=== PATIENT | male | born 1940 ===

== ENCOUNTER 2016-09-26 16:07 | Emergency (ER) | payer MEDICARE, OTHER | END 2016-09-26 16:54 | disposition home or self-care (01) | LOC: ER 16:07 | DX: M79.1 Myalgia (principal); I10 Essential (primary) hypertension; Z95.1 Presence of aortocoronary bypass graft | CPT/HCPCS: 93971; 99283; A9270-GY ==

== ENCOUNTER 2016-10-14 10:18 | Inpatient (IN) | payer MEDICARE, OTHER ==
--- NOTE | ~2016-10-14 | OP ---
Record Of Operation [facility] [address] [place]. [address] NAME: TINA MARS : 40 STATUS : ADM IN [facility]#: [id number] AGE: 76 ADM/REG DATE : 10/14/16 MR#: [id number] REPORT SERV DATE: 10/15/16 DICTATED BY: JAQUELIN OCASIO DATE: 10/15/16 REPORT STATUS : Draft TRANSCRIBED BY: MODL DATE: 10/15/16 DATE OF PROCEDURE: 10/14/2016 PREOPERATIVE DIAGNOSIS: Right femoral neck fracture per MRI. POSTOPERATIVE DIAGNOSIS: Right femoral neck fracture per MRI. PROCEDURE: Right femoral neck ORIF with 7.3 screws. SURGEON: Sheyla Ocasio M.D. THREADING MACHINE SETTER: See chart. DESCRIPTION OF PROCEDURE: The patient was taken to the operating room and placed supine on the table in normal fashion without incident. Placed on the fracture table under fluoroscopic guidance. He was first sedated and then injected with lidocaine and Marcaine solution into the trochanteric region and under fluoroscopic guidance, then a guidewire was placed percutaneously into the center aspect of the femoral head, checked on AP and lateral views with an entry point proximal to the lesser trochanter. Small incision was made followed by parallel pin guide, used to place two other pins into the femoral head. This was checked in AP and lateral views, measured with a depth gauge. The near cortex was drilled. Three screws were placed, tightened, and checked on AP and lateral views. Guidewire was removed. Wound was irrigated, closed, and dressed sterilely. The patient was awakened and taken to the postanesthesia care unit without incident. COMPLICATIONS: None. SPECIMENS: None. BLOOD LOSS: About 5 mL. WTB/MODL Sheyla Ocasio M.D. / [id number] CC: Kishore Gomez M.D.
--- NOTE | ~2016-10-14 | CN ---
Consultation Report [place] [id number] [facility] [place]. [address] NAME: TINA MARS : 40 STATUS : ADM IN PAT#: [id number] AGE: 76 ADM/REG DATE : 10/14/16 MR#: [id number] REPORT SERV DATE: 10/15/16 DICTATED BY: LUCHOJENNIFER SULAIMAN DATE: 10/15/16 REPORT STATUS : Draft TRANSCRIBED BY: MODL DATE: 10/15/16 CONSULTATION. DATE OF CONSULTATION: 10/14/2016 REASON FOR CONSULTATION: Consulted for atrial fibrillation new onset. REQUESTING PHYSICIAN: Dr. Jose Guadalupe Boogie. IDENTIFYING DATA: PRIMARY CARE PHYSICIAN: Dr. Jimmy Gibson. SENIOR DATA SCIENTIST: Dr. Diego Sutherland. HISTORY OF PRESENT ILLNESS: This is a pleasant 76-year-old with a history of COPD, on home O2; high cholesterol, hypertension, coronary artery disease status post CABG approximately 20 years ago, and GERD. He presents to Dr. Jose Guadalupe Boogie with complaints of right hip and upper thigh pain. He is status post surgery on 10/14/2016 for a right hip. The hospitalist group has been consulted to manage the new onset of atrial fibrillation. The patient's history was obtained through interview with the patient coupled with review of wellness consultant's notes and medical records from [facility] and [facility]. PAST MEDICAL HISTORY: 1. COPD. 2. High cholesterol. 3. Kidney disease. 4. Hypertension. 5. GERD. 6. Coronary artery disease. 7. Chronic O2 at 2 L at night. 8. Aortic aneurysm. HOME MEDICATIONS: 1. Norvasc 5 mg p.o. daily. 2. Aspirin 81 mg p.o. every morning. 3. Coreg 9.375 mg p.o. twice a day. 4. Pepcid 20 mg p.o. twice a day. 5. Hydrocodone 5/325 one tablet every 4 to 6 hours p.r.n. for pain. 6. Prilosec 20 mg p.o. every Wednesday, , and Wednesday and the other days where the patient utilizes Pepcid b.i.d. 7. Zocor 20 mg p.o. at bedtime. Consultation Report [address] [place]. [address] NAME: VERNA MARSCassandra Urena : 40 STATUS : ADM IN PAT#: [id number] AGE: 76 ADM/REG DATE : 10/14/16 MR#: [id number] REPORT SERV DATE: 10/15/16 DICTATED BY: JENNIFER YEPEZ DATE: 10/15/16 REPORT STATUS : Draft TRANSCRIBED BY: SANDRA DATE: 10/15/16 ALLERGIES: NO KNOWN ALLERGIES. SOCIAL HISTORY: The patient is retired. 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 Former smoker that quit 30 years ago. No alcohol or illicit drug use. He does have a split foyer with stairs. He uses a cane to ambulate at home prior to his surgery. FAMILY HISTORY: Mother had arthritis. Brother had a CABG. Father from cancer. The patient had three brothers and three sisters. SURGICAL HISTORY: 1. Cholecystectomy. 2. Appendectomy. 3. Colon surgery at 7 years old. 4. CABG approximately 20 years ago. The patient thinks that he had it at [facility]. REVIEW OF SYSTEMS: Are negative other than what is in HPI. The patient is alert and oriented. No complaints of shortness of breath. No nausea or vomiting. No abdominal pain. Displays no confusion or agitation. No chest pain or any discomfort. No fever. PHYSICAL EXAMINATION: VITAL SIGNS: From today, blood pressure 127/60, respiratory rate 18, heart rate 81, temperature 97.7, O2 saturation 93% on 2 L nasal cannula. GENERAL: This is a 76-year-old male, resting in bed. No acute distress. He is alert and oriented x3. NEURO: His head is atraumatic. He is normocephalic. Cranial nerves II through XII are intact. His mood is pleasant and appropriate. NECK: Supple. Trachea is midline. No JVD noted. No obvious thyromegaly or lymphadenopathy. EENT: Sclerae are nonicteric. Pupils are equal and reactive to light. Nares are patent. Mucous membranes moist. Tongue midline without deviation. Soft palate rises equally on phonation. CHEST: No pain with palpation. The patient states he is asymptomatic. He did know his heart rate was irregular. LUNGS: Clear to auscultation bilaterally. Normal respiratory effort. No increased work of breathing with conversation. CARDIOVASCULAR: S1, S2. He does have irregular rate. He is on telemetry, displays an atrial fib with a controlled rate in the 80s. ABDOMEN: Soft, nontender. Active bowel sounds. No palpable organomegaly. EXTREMITIES: He is positive for edema in the ankles. Normal distal pulses. No calf tenderness. Has bilateral TEDs in place for DVT prophylaxis. SKIN: Warm and dry. No unusual rashes or lesions. Normal color and turgor. Consultation Report [address] [place]. [address] NAME: TINA MARS : 40 STATUS : ADM IN [facility]#: [id number] AGE: 76 ADM/REG DATE : 10/14/16 MR#: [id number] REPORT SERV DATE: 10/15/16 DICTATED BY: JENNIFER YEPEZ DATE: 10/15/16 REPORT STATUS : Draft TRANSCRIBED BY: SANDRA DATE: 10/15/16 PSYCH: He is pleasant, cooperative, appropriate mood and affect. SURGICAL WOUND SITE: His dressing is clean, dry, and intact to the right hip op site area. LABORATORY DATA: Sodium 140, potassium 4.7, chloride 108, BUN 35, creatinine 1.71, GFR 44, glucose 108, calcium 8.8. White blood cell 9.9, hemoglobin 9.9, hematocrit 29.2, platelets 265. INR 1.2. Troponin less than 0.02. An EKG on 10/14/2016 displayed atrial fibrillation, nonspecific T-wave abnormality with a rate at 93. ASSESSMENT AND PLAN: 1. Atrial fibrillation new onset. The patient states that he is not aware that he has had an irregular heart rhythm in the past. Controlled rate in the 80s presently on telemetry. He does have a history of CABG in the past as well as hypertension and aortic aneurysm. He is on telemetry. We will get a repeat EKG in the morning, troponins are q.8 x3. We will schedule for an echo in the morning due to new onset of atrial fibrillation with CHI to read. We will continue his Coreg, his Norvasc, and Ortho has the patient now on Coumadin daily. We will check an INR in the morning. 2. Chronic obstructive pulmonary disease. Aware. He is on home O2 at night. We will continue his O2 at 2 L at bedtime. We will have continuous O2 saturation monitoring. We will obtain a portable chest x-ray this morning. 3. Gastroesophageal reflux disease. Aware. We will continue patient's Prilosec and Pepcid for which he takes on alternate days. 4. Hypercholesterolemia. Aware. The patient's Zocor will be continued. 5. A.m. labs. CMP, magnesium, phosphorus, CBC, TSH, EKG, troponin, echo, and portable chest x-ray. If the patient does need a Cardiology consult, he does see Dr. Diego Sutherland in the past. He states since he had that CABG approximately 20 years ago but normally his PCP takes care of his health care. The hospitalist group would like to thank you for this consultation. Please let us know if we could be of further assistance. SHANELL Jennifer Yepez NP / [phone] CC: Sheyla Boogie M.D.
[2016-10-14 11:23] LABS: BASOPHILS 0.6 %; BASOPHILS ABSOLUTE 0.06 10/3/uL (0.0-0.16); EOSINOPHILS 3.3 %; EOSINOPHILS ABSOLUTE 0.33 10/3/uL (0.0-0.53); HEMATOCRIT 32.6 % (40.0-51.0); HEMOGLOBIN 11.1 g/dL (13.6-17.8); IMMATURE GRANULOCYTES 0.3 %; IMMATURE GRANULOCYTES ABSOLUTE 0.03 10/3/uL (0.0-0.11); LYMPHOCYTES 24.4 %; LYMPHOCYTES ABSOLUTE 2.42 10/3/uL (0.67-4.30); MANUAL DIFF NO %; MEAN CORPUSCULAR HEMOGLOB 29.4 pg (26.0-34.0); MEAN CORPUSCULAR VOLUME 86.2 fL (80-100); MEAN PLATELET VOLUME 10.8 fL (9.2-13.0); MONOCYTES 8.1 %; NEUTROPHILS 63.3 %; NEUTROPHILS ABSOLUTE 6.29 10/3/uL (2.02-8.40); PLATELET COUNT 265 10/3/uL (150-400); RBC DISTRIBUTION WIDTH 14.8 % (12.0-16.0); RED CELL COUNT 3.78 10/6/uL (4.7-6.1); WHITE BLOOD CELLS 9.9 10/3/uL (4.5-10.5)
[2016-10-14] MEDS ORDERED: COREG6 PO (11:28)
[2016-10-14] MEDS ORDERED: PCET PO (11:29)
[2016-10-14] MEDS ORDERED: ZOCOR20 PO (11:30)
[2016-10-14] MEDS ORDERED: PRILO PO (11:33)
[2016-10-14] MEDS ORDERED: PEP20 PO (11:34)
[2016-10-14] MEDS ORDERED: ASAB PO (11:35)
[2016-10-14] MEDS ORDERED: NORCO1 TA1 PO (11:38)
[2016-10-14 11:43] LABS: BUN (BLOOD UREA NITROGEN) 35 MG/DL (6-23); CALCIUM, SERUM 9.3 MG/DL (8.5-10.4); CHLORIDE, SERUM 109 MMOL/L (96-112); CO2 (CARBON DIOXIDE) 21 MMOL/L (24-34); CREATININE 1.68 MG/DL (0.70-1.30); GFR AFRICAN AMERICAN 45 ML/MIN (>=60); GFR NON AFRICAN AMERICAN 39 ML/MIN (>=60); GLUCOSE, SERUM 96 MG/DL (60-99); POTASSIUM, SERUM 4.5 MMOL/L (3.5-5.3); SODIUM, SERUM 141 MMOL/L (135-148)
[2016-10-14 20:33] LABS: INTERNATIONAL NORMAL RATI 1.1 UNITS (-); PROTIME (NOT ORD) 14.2 SEC (12.0-14.5)
[2016-10-15 00:36] LABS: HEMATOCRIT 29.2 % (40.0-51.0); HEMOGLOBIN 9.9 g/dL (13.6-17.8)
[2016-10-15 00:42] LABS: INTERNATIONAL NORMAL RATI 1.2 UNITS (-); PROTIME (NOT ORD) 14.9 SEC (12.0-14.5)
[2016-10-15 00:55] LABS: BUN (BLOOD UREA NITROGEN) 35 MG/DL (6-23); CALCIUM, SERUM 8.8 MG/DL (8.5-10.4); CHLORIDE, SERUM 108 MMOL/L (96-112); CO2 (CARBON DIOXIDE) 25 MMOL/L (24-34); CREATININE 1.71 MG/DL (0.70-1.30); GFR AFRICAN AMERICAN 44 ML/MIN (>=60); GFR NON AFRICAN AMERICAN 38 ML/MIN (>=60); GLUCOSE, SERUM 108 MG/DL (60-99); POTASSIUM, SERUM 4.7 MMOL/L (3.5-5.3); SODIUM, SERUM 140 MMOL/L (135-148); TROPONIN I <0.02 NG/ML (<0.05)
[2016-10-15 09:47] LABS: BASOPHILS 0.3 %; BASOPHILS ABSOLUTE 0.03 10/3/uL (0.0-0.16); EOSINOPHILS ABSOLUTE 0.36 10/3/uL (0.0-0.53); HEMATOCRIT 31.4 % (40.0-51.0); HEMOGLOBIN 10.6 g/dL (13.6-17.8); IMMATURE GRANULOCYTES 0.2 %; IMMATURE GRANULOCYTES ABSOLUTE 0.02 10/3/uL (0.0-0.11); LYMPHOCYTES 18.2 %; LYMPHOCYTES ABSOLUTE 1.65 10/3/uL (0.67-4.30); MANUAL DIFF NO %; MEAN CORPUS HGB CONC 33.8 g/dL (32.0-36.0); MEAN CORPUSCULAR HEMOGLOB 29.2 pg (26.0-34.0); MEAN CORPUSCULAR VOLUME 86.5 fL (80-100); MEAN PLATELET VOLUME 10.8 fL (9.2-13.0); NEUTROPHILS 66.3 %; NEUTROPHILS ABSOLUTE 6.01 10/3/uL (2.02-8.40); PLATELET COUNT 249 10/3/uL (150-400); RBC DISTRIBUTION WIDTH 14.6 % (12.0-16.0); RED CELL COUNT 3.63 10/6/uL (4.7-6.1); WHITE BLOOD CELLS 9.1 10/3/uL (4.5-10.5)
[2016-10-15 10:13] LABS: A/G RATIO 0.7 (0.7-1.9); BUN (BLOOD UREA NITROGEN) 31 MG/DL (6-23); CALCIUM, SERUM 8.8 MG/DL (8.5-10.4); CHLORIDE, SERUM 105 MMOL/L (96-112); CO2 (CARBON DIOXIDE) 22 MMOL/L (24-34); CREATININE 1.71 MG/DL (0.70-1.30); GFR AFRICAN AMERICAN 44 ML/MIN (>=60); GFR NON AFRICAN AMERICAN 38 ML/MIN (>=60); GLOBULIN 4.1 G/DL (2.5-4.1); GLUCOSE, SERUM 121 MG/DL (60-99); POTASSIUM, SERUM 4.6 MMOL/L (3.5-5.3); SGOT(AST) 34 U/L (5-40); SGPT(ALT) 34 U/L (5-65); SODIUM, SERUM 136 MMOL/L (135-148); TOTAL BILIRUBIN 0.5 MG/DL (0-1.2); TOTAL PROTEIN 7.1 G/DL (6.0-8.5); TROPONIN I <0.02 NG/ML (<0.05)
[2016-10-15 10:14] LABS: ALKALINE PHOSPHATASE 175 U/L (45-117)
[2016-10-16 05:49] LABS: INTERNATIONAL NORMAL RATI 1.3 UNITS (-); PROTIME (NOT ORD) 16.2 SEC (12.0-14.5)
[2016-10-16 05:51] LABS: CALCIUM, SERUM 8.6 MG/DL (8.5-10.4); CHLORIDE, SERUM 107 MMOL/L (96-112); CO2 (CARBON DIOXIDE) 19 MMOL/L (24-34); CREATININE 1.71 MG/DL (0.70-1.30); GFR AFRICAN AMERICAN 44 ML/MIN (>=60); GFR NON AFRICAN AMERICAN 38 ML/MIN (>=60); GLUCOSE, SERUM 121 MG/DL (60-99); POTASSIUM, SERUM 4.6 MMOL/L (3.5-5.3); SODIUM, SERUM 139 MMOL/L (135-148)
[2016-10-16 05:57] LABS: BASOPHILS 0.1 %; BASOPHILS ABSOLUTE 0.01 10/3/uL (0.0-0.16); EOSINOPHILS 0 %; HEMATOCRIT 31.8 % (40.0-51.0); HEMOGLOBIN 10.9 g/dL (13.6-17.8); IMMATURE GRANULOCYTES 0.3 %; IMMATURE GRANULOCYTES ABSOLUTE 0.03 10/3/uL (0.0-0.11); LYMPHOCYTES 12.4 %; LYMPHOCYTES ABSOLUTE 1.09 10/3/uL (0.67-4.30); MEAN CORPUS HGB CONC 34.3 g/dL (32.0-36.0); MEAN CORPUSCULAR HEMOGLOB 29.5 pg (26.0-34.0); MEAN CORPUSCULAR VOLUME 86.2 fL (80-100); MEAN PLATELET VOLUME 11.3 fL (9.2-13.0); MONOCYTES 7.7 %; MONOCYTES ABSOLUTE 0.68 10/3/uL (0.21-1.20); NEUTROPHILS 79.5 %; NEUTROPHILS ABSOLUTE 6.97 10/3/uL (2.02-8.40); PLATELET COUNT 254 10/3/uL (150-400); RBC DISTRIBUTION WIDTH 14.6 % (12.0-16.0); RED CELL COUNT 3.69 10/6/uL (4.7-6.1); WHITE BLOOD CELLS 8.8 10/3/uL (4.5-10.5)
[2016-10-16 05:59] LABS: BUN (BLOOD UREA NITROGEN) 35 MG/DL (6-23)
[2016-10-16 06:10] LABS: MANUAL DIFF NO %
[2016-10-16] MEDS ORDERED: C5 (17:00)
== END 2016-10-16 17:42 | disposition home or self-care (01) | DRG 481 ==
LOC: SDC/OF 10:18 → 1SO 18:35
PROVIDERS: Nurse Practitioner Family; Specialist
PROC: 0QS604Z Reposition Right Upper Femur with Internal Fixation Device, Open Approach (ICD-10-PCS; principal; 2016-10-14 14:15)
DX: S72.001A Fracture of unspecified part of neck of right femur, initial encounter for closed fracture (principal); N17.9 Acute kidney failure, unspecified; Z99.81 Dependence on supplemental oxygen; I48.91 Unspecified atrial fibrillation; J44.9 Chronic obstructive pulmonary disease, unspecified; I97.89 Other postprocedural complications and disorders of the circulatory system, not elsewhere classified; I10 Essential (primary) hypertension; E78.00 Pure hypercholesterolemia, unspecified; I25.10 Atherosclerotic heart disease of native coronary artery without angina pectoris; K21.9 Gastro-esophageal reflux disease without esophagitis; Z87.891 Personal history of nicotine dependence; Z79.891 Long term (current) use of opiate analgesic; Z79.82 Long term (current) use of aspirin; Z79.899 Other long term (current) drug therapy; Z95.1 Presence of aortocoronary bypass graft; W19.XXXA Unspecified fall, initial encounter
CPT/HCPCS: 71010; 76000; 80048; 80053; 83735; 84100; 84443; 84484; 85014; 85018; 85025; 85610; 93005; 97110-GP; 97116-GP; 97161-GP; 97165-GO; 97535-GO; A9270-GY; C1713; C1769; C8929; G8987-CK-GO; G8988-CJ-GO; J0690; J1170; J1885; J3010; Q9957